=== PATIENT | female | born 2000 | race Caucasian/White ===

== ENCOUNTER 2018-11-06 09:32 | Outpatient (CLI) | payer MEDICAID, SELFPAY ==
--- NOTE | 2018-11-06 17:09 | DI.RAD_ITS ---
SYMPTOM/DIAGNOSIS: SWELLING THENAR PROMINENCE S/P FALL ON LT HAND 4 DAYS AGO. PAIN OF LT THUMB PAIN FINGERS M79.645 LEFT HAND: Comparison is made with 19 Mar 2014. No fracture or dislocation is seen. There is no visible mass. IMPRESSION: Negative left hand.
== END 2018-11-06 09:52 ==
PROVIDERS: PCP Pediatrics; Visit Provider Pediatrics
DX: M79.645 Pain in left finger(s) (principal); M79.89 Other specified soft tissue disorders
CPT/HCPCS: 73130

== ENCOUNTER 2019-01-21 19:25 | Emergency (ER) | payer MEDICAID, SELFPAY ==
[2019-01-21 19:36] VITALS: BP 140/70; PULSE 109; RESP 18; TEMP 38.8; O2SAT 99
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
[2019-01-21] MEDS: Dexamethasone 10 MG/ML VIAL IVP (21:05)
[2019-01-21] MEDS: Ketorolac 15 MG/ML VIAL IVP (21:06)
[2019-01-21] MEDS: Normal Saline 1,000 ML 1000 ML IV (21:06)
[2019-01-21 21:42] LABS: Abs Immature Grans 0.02 k/cumm (0.0-0.09); Absolute Basophil Count 0.01 k/cumm (0.0-0.2); Absolute Eosinophil Count 0.01 k/cumm (0.0-0.7); Absolute Lymphocyte Count 1.24 k/cumm (1.2-3.4); Absolute Monocyte Count 1.09 k/cumm (0.11-0.7); Basophils % 0.1; Eosinophils % 0.1; HCT 33.4 % (36.0-46.0); HGB 10.9 g/dL (12.0-15.5); Immature Grans % 0.2; Lymphocytes % 9.9; Mean Corp. HGB Concentration 32.6 g/dL (32.0-36.0); Mean Corpuscular Hemoglobin 24.9 pg (27.0-33.0); Mean Corpuscular Volume 76.3 fL (80-95); Mean Platelet Volume 11.6 fL (8.0-11.0); Monocytes % 8.7; Platelet Count 248 x1000/uL (130-400); RBC 4.38 m/cumm (4.00-5.20); RBC Distribution Width 14.9 % (11.7-14.6); White Blood Cell Count 12.57 k/cumm (4.4-10.8)
[2019-01-21 21:44] LABS: Absolute Neutrophil Count 10.18 k/cumm (1.2-6.7)
[2019-01-21 21:48] LABS: Mono Screening Negative (Negative)
[2019-01-21 22:05] VITALS: TEMP 37.6
[2019-01-21] MEDS: cefTRIAXone 1 GM/50 ML BAG IVPB (22:38)
[2019-01-21 22:45] VITALS: BP 122/60; PULSE 93; RESP 16; TEMP 36.6; O2SAT 96
[2019-01-21 23:11] VITALS: BP 122/60; PULSE 93; RESP 16; O2SAT 96
--- NOTE | 2019-01-22 07:55 | NUR.NOTE ---
Referral and visit note faxed to ENT.Nursing Note:
== END 2019-01-21 23:10 | disposition home or self-care (01) ==
PROVIDERS: Emergency Provider Physician Assistant; PCP Pediatrics
DX: J36 Peritonsillar abscess (principal)
CPT/HCPCS: 36415; 96361; 96365; 96375; 99284; 85025; 86308; J0696; J1100; J1885

== ENCOUNTER 2020-05-22 03:12 | Outpatient (CLI) | payer MEDICAID, SELFPAY ==
--- NOTE | 2020-05-22 15:00 | NS.NUTBLAN_ITS ---
Serina was referred to Medical Nutrition Therapy for Obesity. 5'8 217 lbs BMI: 33. Serina reports gaining 25 lbs in last couple of years. 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 Goal is to return to this weight. She has + family hx for DM and obesity. Educated Serian on how to follow lower carb, high protein diet (9509-2999 kcal, 80-100 g CHO, 60-80 g protein) with emphasis on lean protein and non starchy vegetables. I also encouraged her to burn 500 kcal on exercise equipment(her preference) 5-6 days per week. Serina was engaged in education and I expect positive results. Provided her with meal plans. No follow up planned at this time. Serina to call if she needs additional guidance for weight management.
== END 2020-05-22 03:32 ==
PROVIDERS: PCP Pediatrics; Visit Provider Dietitian, Registered
DX: E66.9 Obesity, unspecified (principal); Z71.3 Dietary counseling and surveillance
CPT/HCPCS: 97802

== ENCOUNTER 2020-10-14 02:34 | Outpatient (CLI) | payer MEDICAID, SELFPAY ==
[2020-10-14 10:14] LABS: Source Nasal/Nares
[2020-10-14 13:25] LABS: COVID-19 PCR Negative (Negative)
== END 2020-10-14 02:35 | disposition home or self-care (01) ==
LOC: LBO 02:34
PROVIDERS: PCP Pediatrics; Visit Provider Otolaryngology
DX: Z20.822 Contact with and (suspected) exposure to COVID-19 (principal); Z01.818 Encounter for other preprocedural examination
CPT/HCPCS: 87635

== ENCOUNTER 2020-10-16 07:17 | Day surgery (SDC) | payer MEDICAID, SELFPAY ==
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
[2020-10-16] VITALS (9 sets, daily range): BP systolic 121–145; BP diastolic 59–88; PULSE 64–82; RESP 14–21; TEMP 36.2–36.6; O2SAT 95–100; BMI 33.0
[2020-10-16] MEDS: Lactated Ringers 1,000 ML 80 ML IV (07:50)
[2020-10-16] MEDS: ceFAZolin 2 GM/50 ML BAG IVPB (08:50)
--- NOTE | 2020-10-16 09:10 | TONSIL_PTH ---
PATIENT: Serina Matos LOC: [facility] U#:[id number] AGE/SX: 20/F ROOM: RE10/16/[address]: Bobo King MD : 2000 BED: DIS: 10/16/2020 SPEC #: [id number] RECD: 10/16/20 12:44 STATUS: ARPIT REQ #: [id number] MANUEL: 10/16/20 09:[address]: Bobo King DEPT: Surgical Specimen RECD BY: Debora Gavin ENTERED: 10/16/20 12:46 SP TYPE: TONSIL OTHR DR: Joby Soto MD Tissues: 1 - TONSIL AGE 17 & OVER 2 - TONSIL AGE 17 & OVER Procedures: GROSS AND MICRO LEVEL 3 Comments: [id number]
--- NOTE | 2020-10-16 09:32 | W.PM.DSUDISC ---
Discharge Plan Disposition Patient Disposition: HOME Condition: Good Discharge Details Attending Provider: Bobo King Primary Care Provider: Joby Soto Home Meds and New Rx's Prescriptions: No Action multivitamin with iron Tablet 1 tab PO DAILY RF: 0 norgestimate-ethinyl estradiol 0.25-35 mg-mcg tablet 1 tab PO DAILY Qty: 84 RF: 4 Discharge Instructions Stand Alone Forms: ENT-T+A Instructions Referrals: Bobo King MD [ [facility] STAFF PHYSICIAN] - (4 weeks, please call and arrange appointment before the patient leaves) Diet:: As Tolerated
--- NOTE | 2020-10-16 09:34 | W.PM.OP ---
Operative Note Operative Note DATE OF PROCEDURE: 10/16/20 PRE-OP DIAGNOSIS: Chronic tonsillitis PROCEDURE: Tonsillectomy SURGEON: Bobo King ANESTHESIA TYPE: General LMA/ETT Refer to Anesthesia Record ESTIMATED BLOOD LOSS: 50 COMPLICATIONS: None Patient was transported to: PACU Patient's condition: stable Indications: Patient with the above problems. Options were explained to the family regarding further management. The patient elected to undergo the above procedure. Consent was filled out and signed prior to surgery. H&P was reviewed. Risk of narcotics were discussed at length. Findings: Atrophic adenoids with no debris, 3+ tonsils with copious cryptic debris Procedure Description: After obtaining an adequate level of general endotracheal anesthesia the patient was positioned in the supine position and prepped and draped in appropriate fashion. A Zoey Supa mouthgag was carefully introduced into the oral cavity and opened to reveal the soft and hard palate which were examined revealing no evidence of an occult cleft palate. Adenoids were examined with the above findings. Each tonsil was infiltrated in a submucosal plane with 0.5% Marcaine with 1/100,000 epinephrine. Following this each tonsil was grasped and pulled medially and the mucosa along the anterior, superior, and posterior edges of the tonsil incised using a 12 blade. Claudia elevator was then used to disarticulate the tonsil from the superior tonsillar fossa and then a fissure blade was used to strip the tonsil free down to the inferior pole at which point time a tonsillar snare was used to amputate the tonsil from the tonsillar fossa. Once this been accomplished bilaterally, electrocautery suction tip catheter set on 15 W coagulation was used to achieve hemostasis within the tonsillar beds. The Zoey-Supa mouth gag was relaxed and reopened revealing no further bleeding. Valsalva was performed revealing no further bleeding. The Zoey-Supa mouth gag was relaxed and removed and the patient was awakened and extubated by anesthesia and taken recovery room in stable condition. I was present throughout the entire case.
[2020-10-16] MEDS: HYDROmorphone 2 MG/ML VIAL IVP ×2 (09:40→09:50)
[2020-10-16] MEDS: Normal Saline Flush 10 ML SYR IV (09:55)
--- NOTE | 2020-10-16 12:42 | W.ANESPOSTOP ---
Postoperative Evaluation Date, Time and Location Date Performed: 10/16/20 Time Performed: 12:42 Patient Location: Day Surgery Unit Vital Signs Most Recent Imported Vital Signs: Most Recent Vital Signs Temp Pulse Resp BP Pulse Ox 36.2 C L 64 16 132/84 100 10/16/20 10:45 10/16/20 10:45 10/16/20 10:45 10/16/20 10:45 10/16/20 10:45 Pain Score Most Recent Pain Score: Most Recent Pain Score Pain Level 4 10/16/20 10:45 Assessment Mental Status: Awake (Alert & Oriented to Patient Baseline) Airway and Respiratory Function: Patent airway with normal (patient baseline) respiratory exam Cardiovascular Function: Hemodynamically Stable Hydration Status: Adequately Hydrated Nausea & Vomiting: No Nausea or Vomiting Pain: Pt. Denies Any Pain Peripheral Nerve Block: Patient did not receive a nerve block
== END 2020-10-16 11:30 | disposition home or self-care (01) ==
PROVIDERS: PCP Pediatrics; Visit Provider Otolaryngology
PROC: (CPT 42826; principal; 2020-10-16 08:45)
DX: J35.01 Chronic tonsillitis (principal)
CPT/HCPCS: 42826; 81025; 88304; J0690; J1100; J2001; J2405; J2704